=== PATIENT | female | born 2005 | race Caucasian/White ===

== ENCOUNTER 2024-04-23 09:24 | Emergency (ER) | payer SELFPAY ==
[2024-04-23 09:30] VITALS: BP 143/77
--- NOTE | 2024-04-23 10:45 | ED.GENMED ---
History of Present Illness
General
Chief Complaint: Ear Problem
Time Seen by Provider: 04/23/24 10:45
History of Present Illness
History of Present Illness:
TIME OF INITIAL ENCOUNTER: 10:45 AM
HPI: About a year ago, the patient was treated as a typical otitis externa with both ears. Later, the patient was placed on a topical cream without improvement. More recently, the patient has been having left-sided pain 'inside the ear' associated
with drainage. There is been no fevers.
EXAM:
GENERAL: Well appearing in no distress
HEENT: Moist oral mucosa, there is tenderness to palpation of the tragus to the left ear, there is some debris/drainage noted to the left ear canal
NEUROLOGIC: Excellent strength all extremities, no obvious coordination deficits
PSYCHIATRIC: Appropriate mental status, normal insight and judgement
EXTREMITIES: Nontender, no edema, moves all extremities equally
SKIN: No rash, no lesions
NUMBER AND COMPLEXITY OF PROBLEMS ADDRESSED AT THE ENCOUNTER
� Chronic conditions affecting care: Asthma, GERD
� Acute Exacerbation and/or Progression of Chronic Illness: This is an acute problem
� Differential Diagnosis includes: Otitis externa, otitis media, dermatitis, eczema
AMOUNT AND/OR COMPLEXITY OF DATA TO BE REVIEWED AND ANALYZED
� I performed an independent evaluation of and my interpretation is:
EKG:
CT:
X-rays:
Laboratory Studies:
Other:
� Review of other/old records: No old records available for review in [facility]
� Clinical information was obtained by an independent historian: None needed
� Prescriptions/Medications Considered but not given:
� Further testing considered but not performed:
RISK OF COMPLICATIONS AND/OR MORBIDITY OR MORTALITY OF PATIENT MANAGEMENT
� Social determinants of health affecting care: Lives at home
� Discussion with other providers:
� Escalation of care including admission/observation vs risk of discharge considered: Will start drops for otitis externa
ANY OTHER UPDATES:
Phy Exam
Physical Exam
Physical Exam:
See HPI
Course
Orders/Labs/Results
Orders:
Orders
04/23/24 10:51
Neomycin/Polymyxin/Hc [Cortisporin Otic Suspension] See Dose Instructions [facility] NOW STA
Vital Signs
Initial and Last Documented VS:
Initial Vital Signs
Temp Pulse Resp BP Pulse Ox
99.1 F 92 16 143/77 99
04/23/24 09:30 04/23/24 09:30 04/23/24 09:30 04/23/24 09:30 04/23/24 09:30
Last Documented Vital Signs
Temp Pulse Resp BP Pulse Ox
99.1 F 92 16 143/77 99
04/23/24 09:30 04/23/24 09:30 04/23/24 09:30 04/23/24 09:30 04/23/24 09:30
*Critical Care Note
Total Time (30-74mins, 75-104mins- exclusive of procedures): Not Applicable
ED Attending Note
-
Portions of this chart may have been created with voice recognition software.� Occasional wrong word or��sound alike� substitutions may have occurred due to the inherent limitations of voice recognition software.
Discharge Plan
Departure
Patient Disposition: Home (Routine Discharge)
Date of Disposition: 04/23/24
Time of Disposition: 10:53
Patient with high blood pressure during this ER visit?: Yes
Discharge Problem:
Acute Otitis Externa
Instructions: Outer Ear Infection (DC), BLOOD PRESSURE
Activity Restrictions/Additional Instructions:
Use 4 drops to the left ear 3 times per day. Follow-up your primary care doctor. Return here if worse.
Interventions
Interventions:
*Risk Screen - Suicide Last Done: 04/23/24 09:35
*General Assessment Last Done: 04/23/24 09:35
*Neglect/Abuse Screening Last Done: 04/23/24 09:35
ED- Fall Risk Assessment Last Done: 04/23/24 11:06
*ED COVID-19 Vaccine History Last Done: 04/23/24 09:35
*Nursing Disposition Last Done: 04/23/24 11:07
Discharge Date and Time
Discharge Date/Time: 04/23/24 11:07
Print Language: ICELANDIC
[2024-04-23] MEDS: CORTISPORIN OTIC SUSPENSION 1 DROP OTIC (11:02)
== END 2024-04-23 11:07 | disposition home or self-care (01) ==
LOC: EMR 09:24
PROVIDERS: EMERGENCY PHYSICIAN Emergency Medicine
DX: H60.92 Unspecified otitis externa, left ear (principal)
CPT/HCPCS: 99283